=== PATIENT | female | born 1945 | race Caucasian/White ===

== ENCOUNTER 2022-03-21 05:15 | Observation (INO) ==
--- NOTE | 2022-02-13 13:27 | PAT Medication Instructions ---
Medication Instructions Date of Service February 13, 2022 Home Medications Medication Instructions Recorded amlodipine 5 mg tablet (Norvasc) 5 mg PO QAM #30 tab 08/29/18 Wheeled Walker #1 ea 02/09/22 aspirin 81 mg tablet,delayed release (Aspir-) 81 mg PO QAM cyanocobalamin (vitamin B-12) 1,000 mcg tablet (Vitamin B-12) 2,000 mcg PO QAM glimepiride 2 mg tablet 2 mg PO QAM lisinopril 20 mg tablet 20 mg PO QAM metformin 1,000 mg tablet 1,000 mg PO BID metoprolol tartrate 25 mg tablet 25 mg PO BID amlodipine 5 mg tablet (Norvasc) 5 mg PO QAM cholecalciferol (vitamin D3) 50 mcg (2,000 unit) capsule (Vitamin D3) 50 mcg PO QAM ezetimibe 10 mg tablet 10 mg PO QAM DO NOT take the morning of surgery cyanocobalamin (vitamin B-12) 1,000 mcg tablet (Vitamin B-12) 2,000 mcg PO QAM glimepiride 2 mg tablet 2 mg PO QAM lisinopril 20 mg tablet 20 mg PO QAM metformin 1,000 mg tablet 1,000 mg PO BID cholecalciferol (vitamin D3) 50 mcg (2,000 unit) capsule (Vitamin D3) 50 mcg PO QAM Take morning of surgery With a small sip of water, OTHERWISE NOTHING TO EAT OR DRINK AFTER MIDNIGHT: aspirin 81 mg tablet,delayed release (Aspir-) 81 mg PO QAM (continue as normal unless told otherwise by surgeon) metoprolol tartrate 25 mg tablet 25 mg PO BID amlodipine 5 mg tablet (Norvasc) 5 mg PO QAM ezetimibe 10 mg tablet 10 mg PO QAM Take evening before surgery metformin 1,000 mg tablet 1,000 mg PO BID metoprolol tartrate 25 mg tablet 25 mg PO BID Other Notes If you have any questions please call us at [phone] or [phone] or [phone] or [phone]
--- NOTE | 2022-02-16 14:10 | Anesthesiology Consultation ---
Date of Service February 16, 2022 Assessment & Plan (1) Encounter for pre-operative examination: - COVID screening: Per assessment on 02/16: No known COVID-19 positive contacts or current COVID-19 related symptoms. Travel screen negative. Surgeon arranging preop COVID testing. Awaiting results. - Check BSG AM DOS - Cardiology office visit (02/16/22): "A previous visit with her primary care provider in Mar, 2021 it was noted that her blood pressure was 108/60. This prompted a reduction in her amlodipine from 5 milligrams to 2.5 milligrams. The patient however is concerned that her blood pressure has been higher in the meantime, today's reading is 140/87. History is notable for cardiac catheterization in August, with moderate, nonobstructive coronary heart disease for which medical management/risk factor optimization was recommended.. Increase amlodipine from 2.5 milligrams backed 5 milligrams. A new prescription for the 5 milligram tablets was provided. Most recent lipid panel revealed excellent control with ezetimibe monotherapy. Continue remaining medications." F/U one year recommended. Chart Review Chart Review: Acceptable Risk for Surgery and Patient seen in Pre Admission Testing Teaching & Discussion Pre-Anesthesia Teaching/Discussion Notes: Instructed NPO after midnight before surgery,except medications with 15 cc of water. Medication instructions provided according to the PAT guidelines. History Surgery Operation Date: 03/21/22 10:40 Proposed Procedures p Left Total Hip Arthroplasty - Eduard Montague MD Height/Weight Height: 5 ft 1 in Weight: 81.9 kg Allergies Allergy/AdvReac Type Severity Reaction Status Date / Time Sulfa (Sulfonamide Allergy Intermediate Hives, Verified 02/16/22 14:15 Antibiotics) itchy (around waist) Medications Home Medications Medication Instructions Recorded Confirmed Last Taken aspirin 81 mg tablet,delayed 81 mg PO QAM 08/27/18 02/13/22 Unknown release (Aspir-) cyanocobalamin (vitamin B-12) 2,000 mcg PO QAM 08/27/18 02/13/22 Unknown 1,000 mcg tablet (Vitamin B-12) glimepiride 2 mg tablet 2 mg PO QAM 08/27/18 02/13/22 Unknown lisinopril 20 mg tablet 20 mg PO QAM 08/27/18 02/13/22 Unknown metformin 1,000 mg tablet 1,000 mg PO BID 08/27/18 02/13/22 Unknown metoprolol tartrate 25 mg tablet 25 mg PO BID 08/27/18 02/13/22 Unknown amlodipine 5 mg tablet (Norvasc) 5 mg PO QAM #30 tab 08/29/18 02/13/22 Unknown Wheeled Walker #1 ea 02/09/22 02/09/22 Unknown cholecalciferol (vitamin D3) 50 50 mcg PO QAM 02/13/22 02/13/22 Unknown mcg (2,000 unit) capsule (Vitamin D3) ezetimibe 10 mg tablet 10 mg PO QAM 02/13/22 02/13/22 Unknown Past Medical History Medical History Arthritis of left hip Breast cancer s/p left lumpectomy/xrt, remission x 12 years CAD (coronary artery disease) Non-obstructive per 2018 cardiac cath Diabetes mellitus, type 2 NIDDM Hyperlipidemia Hypertension Exercise / Class Metabolic Activity II 4-5 Yardwork/Stairs/Walk up hill (one FS (no CP, no SOB)) Past Family History Family History Other No family history of adverse response to anesthesia Past Surgical History Surgical History History of cardiac cath 08/29/18 (2/2 abnormal stress test) > no stents History of colonoscopy History of lumpectomy of left breast History of radius fracture S/P ORIF RIGHT RADIUS History of surgery on arm LEFT ARM/ELBOW 40+ YEARS AGO S/P FRACTURE Hx of parathyroidectomy 2018 ([facility]) Nausea and vomiting after administration of anesthetic agent Past Anesthesia History No Hx of Anesthesia Complications (except remote PONV) History of PONV No Hx of Motion Sickness and History of PONV (except remote PONV (pt believes preventative tx given with more recent surgeries)) Social History Smoking Status: Former smoker Do You Dip or Chew Tobacco: No Smoking End Date: Light use as teenager Hx Alcohol Use: No Hx Substance Use: No substance use type: does not use Review of Systems Patient denies chest pain, shortness of breath, dyspnea on exertion, fever, chills, cough, wheezing, palpitations. Physical Exam Vital Signs VITALS BP 143/78 P 77 TEMP 98.51 SP02 97%Ra RESP 16 PHYSICAL Mildly decreased cervical extension range of motion. Full TMJ range of motion. TMD 3 finger breaths Mallampati Score 3 Dentition: upper/lower full dentures Lungs: clear throughout to auscultation Cardiac: regular rate and rhythm, no murmurs noted Spine: normal Carotid arteries: negative bruit Extremities: no edema Lab Results Anesthesia Preop Results Results Anesthesia Widget: WBC 6.97 K/uL (4.8-10.8) 02/16/22 Hgb 12.1 g/dL (12.0-16.0) 02/16/22 Hct 36.7 % (37-47) L 02/16/22 Plt 210 K/uL (130-400) 02/16/22 Na 141 mmol/L (136-145) 02/16/22 K 4.8 mmol/L (3.5-5.1) 02/16/22 Cl 104 mmol/L (98-107) 02/16/22 CO2 25 mmol/L (21-32) 02/16/22 BUN 27 mg/dl (6-23) H 02/16/22 Creat 1.22 mg/dl (0.6-1.2) H 02/16/22 Glucose Level 126 mg/dl (70-99(Fasting)) H 02/16/22 PT 10.3 Seconds (9.0-12.0) 02/16/22 PTT 24.4 Seconds (21.0-31.0) 02/16/22 INR 1.0 (0.9-1.1) 02/16/22 HA1c 6.0 % (4.5-5.6) H 02/16/22 Blood Type O Positive 02/16/22 Antibody Screen NEGATIVE 02/16/22 Testing Electrocardiogram Date: 02/16/22 NSR at 78bpm. unconfirmed report. Chest X-Ray Date: 02/16/22 Findings: + NAD Echocardiogram Date: 08/20/18 LVEF 55-59%. No regional motion abnormality. Calcification of the posterior mitral valve leaflet and chordal structure. No significant valvular disease. Stress Test Date: 08/20/18 Type: nuclear Stress EKG response suggestive of ischemia. Perfusion images reveal a small sized fixed anteroapical, apical perfusion defect with no significant evidence of ischemia by perfusion images. Given significant EKG changes, stress test is considered to be suggestive of hemodynamically significant underlying coronary heart disease. 112% MPHR. Subsequent cardiac cath 08/2018. Cardiac Catheterization Date: 08/29/18 Summary of Findings Right dominant coronary anatomy Moderate calcification all proximal vessels Mild to moderate diffuse luminal irregularities all vasculature Left main: Moderate calcification without obstruction Left anterior descending: Type II vessel giving rise to a moderate diagonal office at its first septal branch followed by a large second septal branch all within proximal third. There is mild to moderate irregularities throughout the left anterior descending with focal narrowings of 30% at its origin and 50% between its 2 septal branches Left circumflex: Modest caliber vessel giving rise to 2 small marginal branches and 2 posterior lateral branches. There is mild to moderate irregularities with narrowing of 30% in its ostium and 30% in its mid vessel. Branch vessels are small in caliber Right coronary artery: Dominant vessel large in caliber with mild ectasia diffuse mild luminal irregularities. It gives rise to right ventricular branch in its midportion small acute marginal branch at the AV groove along the large top posterior descending artery along the AV groove 2 posterior ventricular branches both large in caliber. Within the right coronary artery there is an eccentric 30-40% narrowing in its midportion and there is a 50% narrowing at the origin of the large posterior descending artery. Left ventricle: Normal size and function without wall motion abnormality EF 55%, trace mitral insufficiency was observed Systolic hypertension
--- NOTE | 2022-03-17 17:38 | History and Physical Report ---
DATE OF ADMISSION: 03/21/2022 CHIEF COMPLAINT: Left hip pain. HISTORY OF PRESENT ILLNESS: The patient is a 76-year-old white female from [place] who presents wi th about a 1-year history of increasing progressive left hip pain and discomfort. No particular inju ry. She describes mostly groin and thigh pain. She has been taking Advil with minimal relief. The pain has gradually gotten worse over time. She has resorted to using a cane to get around for the pa st 9-10 months. She is looking for relief and better ability to ambulate and getting around safely. PAST MEDICAL HISTORY: Significant for: 1. Diabetes with A1c of 6.2. 2. Hypertension. 3. Breast cancer. 4. Obesity. PAST SURGICAL HISTORY: Includes: 1. Humerus fracture on the right with a nerve palsy that resolved on its own. 2. Lumpectomy. 3. Parathyroid surgery. ALLERGIES: SULFA. CURRENT MEDICATIONS: Include: 1. Amlodipine. 2. Ecotrin. 3. Ezetimibe. 4. Glipizide. 5. Lisinopril. 6. Metformin. 7. Metoprolol. SOCIAL HISTORY: Significant for a 76-year-old white female. She lives in [place]. She is divorce d, with 3 children. Does not drink alcohol. FAMILY HISTORY: Noncontributory. REVIEW OF SYSTEMS: Significant for diabetes. No chest pain or shortness of breath. No history of D VT or PE. No known bleeding problems. PHYSICAL EXAMINATION: GENERAL: Shows a pleasant, elderly female. She looks to be in reasonably good health. HEENT: Benign. NECK: Supple. No lymphadenopathy. LUNGS: Clear to auscultation. HEART: Has regular rate and rhythm. ABDOMEN: Soft, nontender, nondistended. EXTREMITIES: Grossly neurovascularly intact except as follows: Examination of the left hip revealed patient walks with a markedly antalgic gait. She is about 0.5 cm short on the left side compared to the right. She has difficulty walking without a cane. She has pain with any type of hip motion. I nternal rotation to neutral at best. Negative straight leg raise. X-RAYS: X-rays of the left hip were reviewed. It shows advanced left hip arthritis. She has got co mplete loss of her superior joint space. She has got flattening of the femoral head. Cystic change in the femoral head as well. This has progressed since her previous films. ASSESSMENT: A 76-year-old white female with advanced left hip arthritis, it has gotten significantly worse over the past year. She is debilitated by this and would like to have her left hip fixed. Sh e has been scheduled previously, but canceled due to COVID issues. PLAN: We will take her to the operating room and do left total hip replacement. Risks and benefits of this procedure were explained to the patient and include but not limited to DVT, PE, , infect ion, neurological injury, vascular injury, bleeding problem, pain, limited range of motion, stiffness , incomplete relief of symptoms, etc. The patient understands and desires to proceed. Informed cons ent was obtained. Her creatinine is on the top side of normal. We will have to be careful in using any NSAIDs. We david l use aspirin for DVT prophylaxis, but probably avoid Toradol. She is planning to be discharged to [facility] using [facility] program. Job ID: [id number]
[2022-03-21] MEDS ORDERED: dexAMETHasone 4 MG TAB PO SCH (06:00)
[2022-03-21] MEDS ORDERED: ceFAZolin 2000MG 2,000 MG/15 ML SYR IV SCH (06:00)
[2022-03-21] MEDS ORDERED: LR 60ML/HR IV SCH (06:00)
[2022-03-21] MEDS ORDERED: TRANEXAMIC ACID 1,000 MG **IV Intra-op IV SCH (06:00)
[2022-03-21] MEDS ORDERED: LR 500ML BOLUS, THEN 15ML/HR IV SCH (06:00)
[2022-03-21] MEDS ORDERED: ACETAMINOPHEN 500 MG TAB PO SCH (06:00)
[2022-03-21] MEDS ORDERED: FAMOTIDINE 20 MG TAB PO SCH (06:00)
[2022-03-21] MEDS ORDERED: GABAPENTIN 300 MG CAP PO SCH (06:00)
[2022-03-21] MEDS ORDERED: TRANEXAMIC ACID 1,000 MG **IV Pre-op IV SCH (06:00)
[2022-03-21] MEDS ORDERED: BUPIVACAINE 0.5 % 5 MG/1 ML PF 10ML VIAL ONE (06:19)
[2022-03-21] MEDS ORDERED: MIDAZOLAM HCL 1 MG/ML 2ML VIAL ONE (06:32)
[2022-03-21] MEDS ORDERED: BUPIVACAINE 0.5 % 5 MG/1 ML MPF 30ML VIAL ONE (06:35)
[2022-03-21] MEDS ORDERED: EPINEPHrine INJ 1 MG/ML AMP ONE (06:35)
[2022-03-21] MEDS ORDERED: fentaNYL citrate 100 MCG/2 ML VIAL ONE (06:38)
[2022-03-21] MEDS ORDERED: MoRPHine SULFATE PF 1 MG/ML 10 ML AMP/VIAL ONE (06:39)
[2022-03-21] MEDS ORDERED: PROPOFOL IV EMULSION 10 MG/ML 20 ML VIAL IV ONE (06:40)
[2022-03-21] MEDS ORDERED: ONDANSETRON INJ 2 MG/ML 2 ML VIAL ONE (06:41)
[2022-03-21] MEDS ORDERED: fentaNYL citrate 100 MCG/2 ML VIAL IV PRN (06:42)
[2022-03-21] MEDS ORDERED: ePHEDrine sulfate 50 MG/ML AMP IV PRN ×2 (06:42→08:18)
[2022-03-21] MEDS ORDERED: HYDROmorphone INJ 2 MG/ML SYR/VIAL IV PRN (06:42)
[2022-03-21] MEDS ORDERED: ATROPINE SULFATE 0.1 MG/ML 10ML SYR IV PRN (06:42)
[2022-03-21] MEDS ORDERED: ONDANSETRON INJ 2 MG/ML 2 ML VIAL IV PRN ×2 (06:42→09:44)
--- NOTE | 2022-03-21 06:51 | History & Physical Bridge Note ---
Date of Service March 21, 2022 History & Physical Bridge Note I have examined the patient, reviewed the History & Physical and in the interval since the performance of the History & Physical I have noted the following changes of clinical significance: no changes noted
[2022-03-21] MEDS ORDERED: PHENYLEPHRINE HCL 10 MG/ML VIAL ONE (07:23)
[2022-03-21] MEDS ORDERED: LIDOCAINE 2% 2 ML VIAL/AMP(20MG/ML) INFIL ONE (07:40)
[2022-03-21] MEDS ORDERED: ePHEDrine sulfate 50 MG/ML AMP ONE (08:15)
[2022-03-21] MEDS ORDERED: NALBUPHINE HCL INJ 10 MG/ML AMP IV PRN (08:18)
[2022-03-21] MEDS ORDERED: NALOXONE HCL 1 MG in SODIUM CHLORIDE 0.9% 1000ML 1,000 ML IV PRN (08:18)
[2022-03-21] MEDS ORDERED: MoRPHine SULFATE 2 MG/ML CARP IV PRN (08:18)
[2022-03-21] MEDS ORDERED: NALOXONE HCL 0.4 MG/1 ML VIAL/CARP IV PRN ×2 (08:18→09:44)
[2022-03-21] MEDS ORDERED: LACTATED RINGER'S 500 ML IV PRN (08:18)
[2022-03-21] MEDS ORDERED: NALOXONE HCL 0.08 MG in SYRINGE 1.8 ML IV PRN ×2 (08:18→12:11)
[2022-03-21] MEDS ORDERED: diphenhydrAMINE 50 MG/ML VIAL IV PRN (08:18)
[2022-03-21] MEDS ORDERED: MoRPHine SULFATE PF 1 MG/ML 10 ML AMP/VIAL INT SPINAL ONE (08:18)
[2022-03-21] MEDS ORDERED: SODIUM CHLORIDE 0.9% 1000ML 1,000 ML IV SCH (08:30)
[2022-03-21] MEDS ORDERED: DC INTRASPINAL MORPHINE SCH (08:30)
[2022-03-21] MEDS ORDERED: NO NARCOTICS OR SEDATIVES SCH (08:30)
--- NOTE | 2022-03-21 08:42 | Operative Report ---
PG Post Operative Report Pre & Post Diagnosis Operation Date: 03/21/22 07:00 Pre-Op Diagnosis: Left Hip Advanced Degenerative Joint Disease Post-Op Diagnosis: Left Hip Advanced Degenerative Joint Disease with chronic abductor avulsion I identified the patient and participated in the time-out.: Yes Procedure Operation Date: 03/21/22 07:00 Actual Procedures p Left Total Hip Arthroplasty--Uncemented(Left) with left hip abductor repair- Eduard Montague MD Surgeon Eduard Montague MD Keg Filler Durga Hartman PA-C Estimated Blood Loss 200 Findings Consistent with Post-Op Diagnosis Operative findings were advanced left hip DJD. She had grade 4 [id number] disease and she had peeling of the cartilage off the up to the top of the hip suggestive of may be some component of avascular necrosis. Moderate-sized joint effusion. Not much in way of osteophyte formation. She did have a chronic hip abductor avulsion. Fluids 700 cc Specimens Left femoral head sent for pathology Drains None Anesthesia Type Spinal MAC Complications none Disposition Accompanied Patient To Recovery: Yes Indications Patient is 76-year-old female is had a several year history of increasing left hip pain discomfort that is gotten markedly worse over the past year. She failed conservative measures. She was having trouble getting around without a cane at all. X-rays show progressive hip arthritis and articular collapse. She elected proceed with surgical management. Description of Procedure Operative implants consist of: 1. Biomet G7 size 52 mm acetabular shell. 2. [place] hole deep tissue massage therapist. 3. 6.5 cancellous acetabular screws 1 of 35 mm in length and 1 of 30 mm length. 4. Highly cross-linked polyethylene liner with a 52 mm outer diameter and 36 mm inner diameter. 5. DePuy Cor[place] size 10 short neck/125 degree angle femoral component. 5. +5/36 mm ceramic articular ball. The patient was taken to the operating, identified, and placed on the operating table supine position protectors were properly padded. IV antibiotics tried by anesthesia team. Spinal anesthetic and been implemented holding area. Gomez cath was placed in sterile fashion. The patient was then placed in the right lateral decubitus position. Axillary roll was placed. A Stulberg hip positi aries was used for positioning. The left hip and leg were then prepped and draped in usual sterile fashion. A posterior lateral approach to the left hip was then performed to a curvilinear incision centered over the greater trochanter. Sharp dissection was carried through subcutaneous tissue down to the IT band gluteal fascia the IT band gluteal fascia incised longitudinally in line with skin incision. The underlying greater bursa was excised. The piriformis and external rotators were tagged and taken off the posterior aspect of the hip joint capsule. Great care was taken throughout the procedure protect the sciatic nerve at all times. Posterior capsulotomy was then performed in the large flap for later repair. Hip was internally rotated and dislocated. Femoral neck osteotomy cut was made with a Final Cut about 8 mm above the lesser trochanter. Femoral head was removed and sent for pathology. The femur was retracted anteriorly. Attention drawn the acetabulum. The acetabular labrum was excised. The pulmonary fat was excised. Sequential reaming the acetabular was then performed begin a size 43 and progressing up to a 51. I then reamed with a 52 reamer and placed a 52 mm cup in about 40 degrees lateral opening and 20 degrees of anteversion. It was fixed with two 6.5 cancellous acetabular screws. A trial liner was placed. Attention drawn the femur. The proximal femur was entered with a [place] cutter followed by canal finder. I broached begin the size 8 and progressing up to 10. We got excellent fit of the tendon. I trialed the hip with a standard neck but it just seemed too tight. Therefore we elected to use the short neck. Using the short neck and the +5 articular ball the hip was fully stable in full extension and external rotation flexion and flexion to 90 degrees internal Tatian to over 50 degrees. And soft tissue tension seemed appropriate. Leg lengths seem equal. We elect to place these implants. All trial implants were removed. An apex hole deep tissue massage therapist was placed. Highly cross-linked polyethylene liner was placed. A DePuy KLA short neck 125 degree angle size 10 femoral component was impacted in position. A +5/36 mm ceramic articular ball was placed. Hip was located once again found to be stable. Attention drawn toward closing. The wounds irrigated scope soft pulsatile lavage solution. I did inject locally with about 50 cc of half percent Marcaine with epinephrine. The posterior capsule and external rotators were then repaired through drill holes in the posterior trochanter with #2 Tycron suture. I then used the stitches to feed through the the superior and posterior hip abductor tendon in order to repair the abductor posteriorly. I then did place a single Biomet juggernaut anchor anteriorly with 2 sutures. I used this and fed those through the hip abductors in order. The abductor down to the trochanter. The IT band gluteal fascia was then closed with #1 PDS suture running fashion for subcutaneous tissue then closed with 2 layers with a deep layer #1 Vicryl suture and subcutaneous tissue with 2 Dexon suture in a buried interrupted fashion. Skin was closed with skin mira. Leg was then cleaned and dried and sterile dressed with Xeroform, 4 x 4's, ABD pad, foam tape was applied. Patient then transferred to the recovery room in stable condition. Patient tolerated procedure well and there are no complications. Durga Hartman, my physician personal care assistant, was present for the entire procedure. His assistance was essential and required for appropriate patient positioning, prepping and draping, surgical exposure, performing the technical details of the operation, placement the implants, closure of the wound, and placement of the sterile bandage. I attest to the content of the Intraoperative Record and any orders documented therein. Any exceptions are noted below.
--- NOTE | 2022-03-21 09:17 | Anesthesiology Progress Note ---
Date of Service March 21, 2022 Anesthesia Post Procedure Vital Signs Vital Signs: Temp Pulse Pulse Resp BP BP Pulse Ox 03/21/22 09:10 36.3 C L 72 14 136/76 94 03/21/22 09:00 79 17 144/82 H 96 03/21/22 08:50 82 16 144/79 H 100 03/21/22 08:40 83 20 118/75 100 03/21/22 08:31 36.1 C L 76 16 139/63 97 03/21/22 05:30 36.6 C 81 20 167/96 H 96 Pain Intensity Left Hip: Pain Intensity: 8 Transfer of Care Handoff Completed per policy Notes Mental Status: alert / awake / arousable and participated in evaluation Patient Amnestic to Procedure: Yes Nausea / Vomiting: adequately controlled Pain: adequately controlled Airway Patency, RR, SpO2: stable & adequate BP & HR: stable & adequate Hydration State: stable & adequate Anesthetic Complications: no major complications apparent and Pt Satisfied with anesthetic care
--- NOTE | 2022-03-21 09:30 | XRay Report ---
XR hip 1V LT w pelvis CLINICAL HISTORY: IN PACU - A/P PELVIS and LATERAL HIP TECHNIQUE: 2 views of the left hip and single frontal view of the pelvis were obtained. Comparison: None available at the time of this dictation. FINDINGS: Patient is status post total hip arthroplasty with expected postsurgical changes including soft tissu e swelling, subcutaneous emphysema, and surgical staple placement. No periarticular lucency or hardwa re fracture is seen. IMPRESSION: Expected postoperative appearance status post placement of total hip arthroplasty. ACT 112: Negative or not required by law. Electronically signed by: Jorden Granado M.D. 03/21/2022 9:28 AM
[2022-03-21] MEDS ORDERED: PHARMACY GLYCEMIC MGMT CONSULT PRN (09:44)
[2022-03-21] MEDS ORDERED: GLUCOSE 40% GEL 15 GM TUBE PO PRN (09:44)
[2022-03-21] MEDS ORDERED: bisacodyL 10 MG SUPP PR PRN (09:44)
[2022-03-21] MEDS ORDERED: GLUCOSE 10 TABS/TUBE PO PRN (09:44)
[2022-03-21] MEDS ORDERED: CARBOHYDRATES FOR HYPOGLYCEMIA PO PRN (09:44)
[2022-03-21] MEDS ORDERED: DEXTROSE 50% 50 ML SYRINGE IV PRN (09:44)
[2022-03-21] MEDS ORDERED: GLIMEPIRIDE 2 MG TAB PO SCH (09:44)
[2022-03-21] MEDS ORDERED: ALUMINUM/MAGNESIUM SUSP 30 ML UDC PO PRN (09:44)
[2022-03-21] MEDS ORDERED: GLUCAGON FOR INJ 1 MG VIAL SQ PRN (09:44)
[2022-03-21] MEDS ORDERED: MAGNESIUM HYDROXIDE SUSP 30 ML UDC PO PRN (09:44)
[2022-03-21] MEDS: SODIUM CHLORIDE 0.9% 1000ML 1,000 ML IV SCH ×2 (10:02→19:38)
--- NOTE | 2022-03-21 10:52 | Pharmacy Report ---
Pharmacy Glycemic Short Note 2 - Date of Service March 21, 2022 - Glycemic Short BSG Results (Last 24 hours): 03/21/22 03/21/22 05:36 08:34 POC Glucose 104 H 185 H OUTPATIENT ANTIDIABETIC REGIMEN: * Metformin 1000 mg PO BIDM * Glimepiride 2 mg PO daily * HbA1c: 6% (02/16/22) ASSESSMENT: * URBANO is a 76 year old female POD #0 s/p left total hip arthroplasty * Received 8 mg PO dexamethasone preoperatively * Preop BSG of 104 mg/dL, postop BSG of 185 mg/dL * Patient has excellent A1c, but postop BSG of 275 mg/dL likely secondary to steroids * Will utilize slightly aggressive carb ratio and give one-time NPH order * Likely restart metformin tomorrow morning pending AM labs and loosen insulin in the morning PLAN FOR INPATIENT GLYCEMIC CONTROL: * Hold outpatient oral diabetes medications * Basal insulin * NPH 20 units SC x 1 to cover steroids (~0.25 unit/kg) * Bolus insulin * NovoLog per scale ACHS or Q6hrs while NPO * Goal Range: Low 110 mg/dL - High 140 mg/dL * Correction Factor: 25 mg/dL/unit * Nutritional / Prandial insulin per carb ratio of 1 unit per 8 grams CHO consumed
[2022-03-21] MEDS: METOPROLOL TARTRATE 25 MG TAB PO SCH ×2 (11:27→20:11)
[2022-03-21] MEDS: ASPIRIN 81 MG ECTAB PO SCH ×2 (11:28→20:11)
[2022-03-21] MEDS: lisinopril 20 MG TAB PO SCH (11:28)
[2022-03-21] MEDS: amLODIPine BESYLATE 5 MG TAB PO SCH (11:28)
[2022-03-21] MEDS: EZETIMIBE 10 MG TABLET PO SCH (11:28)
[2022-03-21] MEDS: MULTIVITAMIN TAB PO SCH (11:29)
[2022-03-21] MEDS: DOCUSATE SODIUM 100 MG CAP PO SCH ×2 (11:29→20:11)
[2022-03-21] MEDS: INSULIN ASPART PER UNIT SC SCH ×4 (11:35→20:55)
[2022-03-21] MEDS ORDERED: NovoLIN-N (NPH) PER UNIT CHARGE SQ ONE (12:30)
[2022-03-21] MEDS: ONDANSETRON INJ 2 MG/ML 2 ML VIAL IV PRN ×2 (12:36→19:37)
[2022-03-21] MEDS: ACETAMINOPHEN 500 MG TAB PO SCH ×2 (13:36→22:02)
--- NOTE | 2022-03-21 14:19 | Progress Notes ---
DATE OF SERVICE: 03/21/2022 SUBJECTIVE: A 76-year-old white female postop from a left hip replacement. She is doing well. I llanos d to wake her this afternoon. She is resting comfortably. Denies any significant pain. She has bee n a little bit nauseated. OBJECTIVE: VITAL SIGNS: Temperature 36.5. Vital signs are stable. PHYSICAL EXAMINATION: GENERAL: Shows a pleasant, elderly female. She was sitting up in bed, sleeping when I visited her. Easily arousable. LUNGS: Clear to auscultation. HEART: Regular rate and rhythm. ABDOMEN: Soft, nontender, nondistended. EXTREMITIES: Grossly neurovascularly intact except as follows: Examination of the left leg reveals the dressing to be clean, dry and intact. Leg lengths are equal. The hip is located. She is neurol ogically intact. X-RAYS: X-rays of the left hip from the recovery room are reviewed. It shows a left uncemented hip replacement. Components looked to be in good position. No signs of problems. ASSESSMENT: A 76-year-old white female postoperative from left hip replacement, doing well. Pain is controlled. Hip is located. She is neurologically intact. PLAN: 1. DVT prophylaxis includes thigh-high TEDs, SCDs and aspirin twice a day. 2. PT, OT, weightbear as tolerated. Left total hip protocol. 3. Pain control, doing well with current pain regimen. 4. Disposition: Plan to discharge her to home with home health once adequately recovered and gettin g around safely. We will have to see how therapy goes tomorrow. Job ID: [id number]
[2022-03-21] MEDS: METOCLOPRAMIDE HCL INJ 5 MG/ML 2 ML VIAL IV PRN ×2 (14:20→20:48)
[2022-03-21] MEDS: ceFAZolin 1000MG 1,000 MG/7.5 ML SYR IV SCH ×2 (14:20→22:59)
[2022-03-21] MEDS ORDERED: TRANEXAMIC ACID / 0.7% NACL 1,000 MG/100 ML BAG IV SCH (14:45)
[2022-03-21] MEDS: ASCORBIC ACID 500 MG TAB PO SCH (17:36)
[2022-03-21] MEDS ORDERED: SENNA 8.6 MG TAB PO SCH (21:00)
[2022-03-22] MEDS ORDERED: traMADol HCL 50 MG TABLET PO PRN (02:19)
[2022-03-22] MEDS ORDERED: HYDROmorphone INJ 0.5 MG/0.5 ML SYR IV PRN (02:19)
[2022-03-22] MEDS: ACETAMINOPHEN 500 MG TAB PO SCH (05:04)
[2022-03-22 05:47] LABS: Hematocrit (blood only) 30.2 % (37-47); Hemoglobin 10.2 g/dL (12.0-16.0); Immature Granulocytes # (auto) 0.01 K/uL (0.00-0.02); Immature Granulocytes % (auto) 0.1 %; Lymphocytes # (auto) 0.71 K/uL (1.2-3.4); Lymphocytes % (auto) 8.5 %; Mean Corpuscular Hemoglobin 31.1 pg (25-34); Mean Corpuscular Hgb Conc 33.8 g/dL (32-36); Mean Corpuscular Volume 92.1 fL (80-100); Mean Platelet Volume 8.8 fL (7.4-10.4); Monocytes # (auto) 0.89 K/uL (0.11-0.59); Monocytes % (auto) 10.7 %; Neutrophils # (auto) 6.71 K/uL (1.4-6.5); Neutrophils % (auto) 80.7 %; Platelet Count 176 K/uL (130-400); RDW Coefficient of Variation 13.3 % (11.5-14.5); RDW Standard Deviation 44.6 fL (36.4-46.3); Red Blood Count 3.28 M/uL (4.2-5.4); White Blood Count 8.32 K/uL (4.8-10.8)
[2022-03-22] MEDS: SODIUM CHLORIDE 0.9% 1000ML 1,000 ML IV SCH (06:04)
[2022-03-22 06:20] LABS: BUN Creatinine Ratio 28.7 (10-20); Calcium 8.4 mg/dl (8.5-10.1); Creatinine Clr Calc Pharmacy 40.3 ml/min; Est GFR (African American) 53.5 ml/min; Est GFR (Non-African American) 46.2 ml/min; Potassium 4.3 mmol/L (3.5-5.1)
[2022-03-22] MEDS ORDERED: metFORMIN HCL 500 MG TAB PO SCH (08:00)
[2022-03-22] MEDS: DOCUSATE SODIUM 100 MG CAP PO SCH (08:08)
[2022-03-22] MEDS: ASPIRIN 81 MG ECTAB PO SCH (08:08)
[2022-03-22] MEDS: ASCORBIC ACID 500 MG TAB PO SCH (08:09)
[2022-03-22] MEDS: METOPROLOL TARTRATE 25 MG TAB PO SCH (08:09)
[2022-03-22] MEDS: amLODIPine BESYLATE 5 MG TAB PO SCH (08:09)
[2022-03-22] MEDS: MULTIVITAMIN TAB PO SCH (08:09)
[2022-03-22] MEDS: lisinopril 20 MG TAB PO SCH (08:10)
[2022-03-22] MEDS: EZETIMIBE 10 MG TABLET PO SCH (08:10)
[2022-03-22] MEDS: INSULIN ASPART PER UNIT SC SCH ×2 (08:18→12:52)
[2022-03-22] MEDS ORDERED: CHOLECALCIFEROL 1,000 UNITS 25 MCG TAB PO SCH (09:00)
[2022-03-22] MEDS ORDERED: CYANOCOBALAMIN (B-12) 500 MCG TABLET PO SCH (09:00)
--- NOTE | 2022-03-22 15:08 | Progress Notes ---
DATE OF SERVICE: 03/22/2022 SUBJECTIVE: A 76-year-old white female postop day 1 from left hip replacement. She is doing quite w ell. She is hoping to go home. Pain is controlled. She feels like she did good in therapy. No oth er complaints. OBJECTIVE: VITAL SIGNS: Temperature 36.8. Vital signs are stable. PHYSICAL EXAMINATION: GENERAL: Shows a pleasant, elderly female. Sitting up at her bedside chair, looks comfortable. LUNGS: Clear to auscultation. HEART: Regular rate and rhythm. ABDOMEN: Soft, nontender, nondistended. EXTREMITIES: Grossly neurovascularly intact except as follows: Examination of the left hip reveals the dressing to be clean, dry and intact. Thigh is soft and supple. Hip is located. Leg lengths ar e equal. She can dorsiflex and plantarflex her foot appropriately. LABORATORIES: Hemoglobin 10.2. Hematocrit 30.2. Electrolytes are stable. ASSESSMENT: A 76-year-old white female postoperative day 1 from left total hip replacement, doing qu ite well. She is hoping to go home. Her hip is located. She is neurologically intact. PLAN: 1. DVT prophylaxis includes thigh-high TEDs, SCDs, and aspirin twice a day. 2. PT, OT, weightbear as tolerated. Left total hip protocol. 3. Pain control, doing well with current pain regimen. 4. Disposition: We are going to discharge her to home. She is going to have home health and family assist in her care. Job ID: [id number]
--- NOTE | 2022-03-27 06:51 | Discharge Summary ---
Date of Service March 27, 2022 Discharge Data Procedures Performed Operation Date: 03/21/22 07:00 Actual Procedures p Left Total Hip Arthroplasty--Uncemented(Left) - Eduard Montague MD Hospital Course (1) S/P total left hip arthroplasty: This patient is a 76 year old female admitted on 03/21/22 and underwent total hip arthroplasty. She tolerated the procedure well and there were no complications. Transferred to the PACU post op and later to the orthopedic floor for further care. She was given ancef for antibiotic prophylaxis. She was also given LUCIO stockings, SCDs, and aspirin for DVT prophylaxis. Hemoglobin, hematocrit, and vital signs were monitored during her hospital stay and remained stable. Did not require any blood transfusions. There were no complications during her hospital stay. By post op day #1 the patient was tolerating a diabetic diet, pain was reasonably controlled with oral pain medicine, and she was participating in physical therapy. On post op day #1 the patient was discharged home and set up with home health care. She was given printed discharge instructions including prescriptions for extra strength tylenol, aspirin, zofran, and tramadol. Continue physical therapy, weight bearing as tolerated. Continue hip precautions. Continue LUCIO stockings. Follow up approximately 2 weeks post op or sooner if there are problems or concerns. Coding Level of Care Code None Diagnoses S/P total left hip arthroplasty Z96.642
== END 2022-03-22 14:13 | disposition home health service (06) ==
LOC: ASU 05:15 → 3E 05:15